=== PATIENT | female | born 2000 | race Caucasian/White ===

== ENCOUNTER 2025-02-27 12:09 | Emergency (ER) | payer MEDICAID, SELFPAY ==
[2025-02-27 12:10] VITALS: BMI 36.5
[2025-02-27 13:29] VITALS: BP 149/97; PULSE 107; RESP 18; TEMP 37.1; O2SAT 99
--- NOTE | 2025-02-27 13:35 | PD.EDRME ---
Rapid Medical Screening Exam E Arrival date/time: 02/27/25 12:09 This is a 25-year-old female that comes into the emergency room with complaints of right upper quadrant pain patient reports nausea no vomiting.. Patient does not think she is . Patient states her had a vasectomy. Patient denies past medical history. I have greeted and performed a focused initial assessment of this patient. Initial appropriate labs ordered at this time. A comprehensive ED assessment and evaluation of the patient and analysis of all test and completion of medical decision making process will be conducted by additional ED provider. Chief Complaint: Abdominal Pain Time Seen by Provider: 02/27/25 13:30 Vital signs: Vital Signs Temperature 98.8 F 02/27/25 13:29 Pulse Rate 107 H 02/27/25 13:29 Respiratory Rate 18 02/27/25 13:29 Blood Pressure 149/97 H 02/27/25 13:29 Pulse Oximetry (%) 99 02/27/25 13:29 Oxygen Delivery Method Room Air 02/27/25 13:29
[2025-02-27 14:30] LABS: Basophils # (Auto) 0.1 Thou/mm3 (0.0-0.2); Basophils % (Auto) 1 % (0-2.5); Eosinophils # (Auto) 0.1 Thou/mm3 (0.0-0.5); Eosinophils % (Auto) 1 % (0-10); Hematocrit 42.0 % (36.0-46.0); Hemoglobin 14.1 g/dL (12.0-16.0); Immature Granulocytes Auto 0.02 Thou/mm3 (0.00-0.00); Lymphocytes # (Auto) 2.2 Thou/mm3 (1.0-4.8); Lymphocytes % (Auto) 29 % (10-50); Mean Corpuscular HGB Conc 33.6 g/dl (31.0-37.0); Mean Corpuscular Hemoglobin 30.8 pg (25.0-35.0); Mean Corpuscular Volume 92 fL (80-100); Monocytes # (Auto) 0.5 Thou/mm3 (0.0-0.8); Monocytes % (Auto) 7 % (0-12); Neutrophils # (Auto) 4.7 Thou/mm3 (1.8-7.7); Neutrophils % (Auto) 62 % (37-80); Nucleated Red Blood Cell # 0.00 Thou/mm3 (0.00-0.00); Nucleated Red Blood Cell % 0 /100 WBC (0); Platelet Count 280 Thou/mm3 (140-440); RDW Standard Deviation 40.5 fL (36.4-46.3); Red Blood Count 4.58 Miln/mm3 (4.00-5.20); White Blood Count 7.6 Thou/mm3 (3.6-11.0)
[2025-02-27 14:34] LABS: Alanine Aminotransferase 34 U/L (10-49); Albumin, Serum 4.6 gm/dL (3.5-5.0); Albumin/Globulin Ratio 1.9 (1.2-2.2); Alkaline Phosphatase 73 U/L (46-116); Anion Gap 8 (7-16); Aspartate Amino Transferase 17 U/L (0-34); BUN/Creatinine Ratio 10 Ratio (12-20); Bilirubin,Total 0.4 mg/dL (0.3-1.2); Blood Urea Nitrogen 9 mg/dL (9-23); Calcium 9.2 mg/dL (8.3-10.6); Calcium (Corrected) 9.2 mg/dL (8.5-10.1); Carbon Dioxide 23.9 mMol/L (20.0-31.0); Chloride 108 mMol/L (98-107); Creatinine (Component) 0.9 mg/dL (0.6-1.3); Estimated Creatinine Clearance 117.4 mL/min (>60); Globulin 2.4 gm/dL (2.3-3.5); Glucose 93 mg/dL (74-106); Lipase 27 U/L (12-53); Osmolality,Calculated 278 (275-295); Potassium 4.3 mMol/L (3.4-5.1); Sodium 140 mMol/L (136-145); Total Protein 7.0 gm/dL (5.7-8.2); eGFR > 60 See Note
[2025-02-27 14:46] LABS: Collection Type, Urine Voided; WBC,Urine 0 /hpf (0-5)
[2025-02-27 15:04] LABS: Bacteria,Urine Rare; Bilirubin,Urine Negative (Negative); Blood,Urine Negative (Negative); Clarity,Urine Turbid (Clear/Hazy); Color,Urine Lt-Yellow (Lt Yel-Yel); Culture Indicated,Urine Not Indicated; Glucose, Urine Negative (Negative); Ketones,Urine Negative (Negative); Leukocyte Esterase,Urine Negative (Negative); Nitrite,Urine Negative (Negative); PH,Urine 6.0 (5.0-7.0); Protein,Urine Negative (Neg - Trace); RBC,Urine 4 /hpf (0-3); Specific Gravity,Urine 1.019 (1.001-1.035); Squamous Epithelial Cell,Urine 7 /hpf (0-5); Urobilinogen,Urine Negative mg/dL (0.0-1.0)
[2025-02-27 15:10] LABS: HCG Qualitative,Urine Negative
--- NOTE | 2025-02-27 16:53 | XR_ITS ---
Examination: Abdomen sonogram, Limited Date and time of exam: February 27, 2025, 1702 hrs. Indications: Right upper abdominal pain and nausea beginning 2 days ago. Technique: Grayscale sonographic images of the abdomen Findings: Normal gallbladder. Normal common bile duct 0.2 cm Pancreatic head 1.7 cm Liver 14.6 cm fatty infiltration no focal liver lesions Normal hepatopedal portal venous flow Patent IVC Impression: Normal gallbladder Normal common bile duct No focal liver lesions
--- NOTE | 2025-02-27 16:53 | PD.EDABDPN ---
ED Abdominal Pain RME/HPI General Chief Complaint: Abdominal Pain Stated complaint: R UPPER ABD PAIN X3 DAYS WITH N/V Time seen by provider: 02/27/25 13:30 Arrival date/time: 02/27/25 12:09 RME / HPI RME / HPI narrative: 25-year-old female that comes into the emergency room with complaints of right upper quadrant pain patient reports nausea no vomiting.. Onset of symptoms for the last 3 days, described as sharp pain, severity moderate. Patient does not think she is . Patient states her had a vasectomy. Patient denies past medical history. She was diagnosed with gallbladder sludge 3 years ago. She denies any fever. No diarrhea no constipation no dysuria no frequency no other complaints noted. Related Data Home Medications ?Medication ?Instructions ?Recorded ?Confirmed labetalol 200 mg tablet 200 tab PO BID 11/07/21 01/25/22 aspirin 81 mg tablet,delayed 1 tab PO DAILY 01/25/22 01/25/22 release vit no.95-ferrous 1 tab PO DAILY 01/25/22 01/25/22 fumarate 28 mg-folic acid 800 mcg tablet () Previous Rx's ?Medication ?Instructions ?Recorded dicyclomine 20 mg tablet 20 mg PO QID PRN abdominal pain 02/27/25 #30 tabs pantoprazole 40 mg tablet,delayed 40 mg PO QDAY #20 tabs 02/27/25 release (Protonix) Allergies Allergy/AdvReac Type Severity Reaction Status Date / Time bee venom protein (honey bee) Allergy Severe Hives Verified 02/27/25 12:13 hydrocodone (From [place]) Allergy Severe Anxiety Verified 02/27/25 12:13 benazepril AdvReac Severe Nausea Verified 02/27/25 12:13 Review of Systems Review of Systems Narrative Review of Systems: Review of system reviewed and within normal limits except mentioned in HPI ED Exam Narrative Physical exam: VITAL SIGNS: Reviewed. GENERAL APPEARANCE: Alert and interactive, follows commands, no acute distress, HEAD AND FACE: Non-traumatic. ENT: PERRL, pink conjunctivitis, eyelid no trauma, Mucous membrane moist. NECK: Supple, nontender, no nuchal rigidity. CHEST: No tenderness, no crepitus, no paradoxical movement, no retractions. LUNGS: Clear, well ventilated, symmetric, no rales, no wheezing, no ronchi, no stridor, good breath sounds bilaterally. HEART: Regular rate, regular rhythm, no murmur, no gallops. ABDOMEN: Soft, positive bowel sounds, nondistended, no guarding, right upper quadrant tenderness, no rebound, no masses, RECTAL: Deferred. GENITAL: Deferred. NEUROLOGICAL: Gross motor function intact sensory function intact, Appropriate for age. MUSCULOSKELETAL: low back nontender, full range of motion. EXTREMITIES: Nontender, full range of motion. SKIN: Color pink, dry, no rash, no lacerations, no abrasions, no contusions. LYMPHATICS: Deferred. Course Quality Measures none Orders Category Date Time Status US gall bladder Stat Exams 02/27/25 16:53 Taken CBC Stat Lab 02/27/25 13:54 Completed Comprehensive Metabolic Panel Stat Lab 02/27/25 13:54 Completed HCG Qualitative,Urine Stat Lab 02/27/25 14:44 Completed Lipase Stat Lab 02/27/25 13:54 Completed Urinalysis, C/S if Indicated Stat Lab 02/27/25 14:44 Completed Ketorolac Inj [Toradol Inj] Med 02/27/25 16:53 Discontinued 30 mg IM X1 ONE Vital Signs Vital signs: Vital Signs Temperature 98.8 F 02/27/25 13:29 Pulse Rate 107 H 02/27/25 13:29 Respiratory Rate 18 02/27/25 13:29 Blood Pressure 149/97 H 02/27/25 13:29 Pulse Oximetry (%) 99 02/27/25 13:29 Oxygen Delivery Method Room Air 02/27/25 13:29 Abdominal Pain MDM MDM Narrative MDM Narrative:: 25-year-old female that comes into the emergency room with complaints of right upper quadrant pain patient reports nausea no vomiting.. Onset of symptoms for the last 3 days, described as sharp pain, severity moderate. Patient does not think she is . Patient states her had a vasectomy. Patient denies past medical history. She was diagnosed with gallbladder sludge 3 years ago. She denies any fever. No diarrhea no constipation no dysuria no frequency no other complaints noted. Ultrasound of the gallbladder came back unremarkable. Patient's laboratory workup all came back with no metabolic or pathology abnormality noted. Patient stable for discharge home. Patient data External records reviewed:: None Clinical information provided by:: patient Social determinants that could affect healthcare access:: none Patient has the following chronic illnesses:: None How is presenting disease/condition affected by chronic disease/condition?: no chronic disease Evaluation data The following diagnostics were reviewed and interpreted by me:: lab results and radiology exam(s) Lab and/or radiology exams considered but not ordered:: None Interpretation Summary: See results MDM Medications / Prescriptions Medications or Prescriptions considered but not ordered:: None Medication administrations:: Medication Administration History Discontinued Medications Ketorolac Tromethamine (Ketorolac Inj 30 Mg/Ml Vial) 30 mg IM X1 ONE Stop: 02/27/25 16:54 Last Admin: 02/27/25 17:19 Dose: 30 mg Documented By: COMPA Toradol IM Consultations Consultation(s) initiated? (list below): No Diagnosis Differential diagnosis abdominal pain: abdominal pain, constipation and other (Gallstone) Most likely diagnosis given after review of the tests above:: Abdominal pain Admission Indicated Admission indicated?: not indicated Admission Request Was there a request for admission?: No Disposition Plan Disposition Plan: Discharge Discharge Attestation Discharge Attestation: The patient was given an opportunity to ask questions and understood the discharge instructions. Discharge instructions specifically effects, indications for sooner follow up or return to the emergency department, and the expected course of current diagnosis. Patient condition: Stable Discharge Plan Plan Patient Disposition: HOME (Self Care) Discharge Disposition comment: Stable Prescriptions/Referrals Prescriptions/Med Rec: New pantoprazole [Protonix] 40 mg tablet,delayed release (DR/EC) 40 mg PO QDAY Qty: 20 0RF dicyclomine 20 mg tablet 20 mg PO QID PRN (Reason: abdominal pain) Qty: 30 0RF No Action labetalol 200 mg tablet 200 tab PO BID aspirin 81 mg tablet,delayed release (DR/EC) 1 tab PO DAILY Patient Comments: TAKE 2 TABLETS BY MOUTH EVERY DAY PNV no.95-ferrous fumarate-FA [] 28 mg iron- 800 mcg tablet 1 tab PO DAILY Patient Comments: TAKE 1 TABLET BY MOUTH ONCE A DAY FOR 30 DAYS Referrals: Kiki Myers PA-C [Primary Care Provider, Family Practice] - In 1 week Problem List Clinical Impression: Abdominal pain Patient/Caregiver Discharge Instructions Discharge Activity: activity as tolerated Education Materials: Abdominal Pain Additional Instructions: Thank you for the opportunity for serving you today. You are stable for discharged . You are advised to: Follow-up with your PCP in 1 to 2 days Return to ED for worsening of symptoms Increase oral fluids Take medication as prescribed Print Language: Nepali Stand Alone Forms: Ranjana Award Info., Patient Portal Info Letter PA/CLINICAL DATA SPECIALIST Supervising Physician PA/GAIL Supervising Physician: MD Hannah
[2025-02-27] MEDS: KETOROLAC INJ 30 MG/ML VIAL IM (17:19)
[2025-02-27 18:08] VITALS: BP 150/102; PULSE 99; RESP 20; TEMP 37.1; O2SAT 98
[2025-02-27 18:19] VITALS: BP 158/106; PULSE 90; RESP 18; O2SAT 97
[2025-02-27 19:00] VITALS: BP 134/90; PULSE 89; RESP 16
== END 2025-02-27 19:01 | disposition home or self-care (01) ==
PROVIDERS: Nurse Practitioner Family; Emergency Provider Emergency Medicine; PCP Physician Assistant
DX: R10.11 Right upper quadrant pain (principal)
CPT/HCPCS: 36415; 76705; 80053; 81001; 81025; 83690; 85025; 96372; 99283; J1885